=== PATIENT | female | born 1975 | race Caucasian/White ===

== ENCOUNTER 2022-12-09 07:22 | Outpatient (CLI) | payer OTHER ==
[~2022-12-09 07:22] MED LIST: CELEXA PO; CIPROFLOXACIN750 MG PO; CLONAZEPAM1 MG PO; DOCUSATE SODIU100 MG PO; GABAPENTIN800 MG PO; METHYLPRED4 MG/DOSE- PO; NORFLEX100MG PO; PERCOCET 5/3251 TAB PO; ULTRAM50 MG PO
== END 2022-12-09 07:25 | disposition home or self-care (01) ==
LOC: NUCLEAR 07:22
PROVIDERS: ATTEND Physical Medicine & Rehabilitation
DX: M13.10 Monoarthritis, not elsewhere classified, unspecified site (principal); M79.18 Myalgia, other site
CPT/HCPCS: 78315; A9503